=== PATIENT | male | born 1990 | race African-American/Black ===

== ENCOUNTER 2016-06-20 09:37 | Emergency (ER) | payer SELFPAY ==
--- NOTE | 2016-06-20 11:33 | ERRECORD ---
[facility] EMERGENCY RECORD HPI GENERAL (11:18 LLDO) CHIEF COMPLAINT: Patient presents for evaluation of left inguinal hernia. intermittent for months. not tender and does reduce easily. pops out more often these days. no hx trauma. no n/v/d or fever. long talk about etiology and management of hernias. this one gets up to baseball sized at it's largest. HISTORIAN: History provided by patient. MECHANISM OF INJURY: Known mechanism. LOCATION: Symptoms are localized. QUALITY: no pain. TIME COURSE: Patient unable to describe onset of symptoms, There has been no change in the patient's symptoms over time. ASSOCIATED WITH: No associated symptoms. EXACERBATED BY: Patient's condition exacerbated by nothing. RELIEVED BY: Patient's condition relieved by nothing. ROS CONSTITUTIONAL: Negative constitutional review of systems. (11:21 LLDO) EYES: Negative eye review of systems, Historian denies eye pain, denies eye redness, denies eye discharge. (11:22 LLDO) ENT: Negative ears, nose, throat review of systems, Historian denies otalgia, denies rhinorrhea, denies sinus pain, denies sore throat. (11:22 LLDO) GI: IN HPI. (11:21 LLDO) MUSCULOSKELETAL: Negative musculoskeletal review of systems, Historian denies arthralgias, denies fall, denies injury, denies myalgias. (11:22 LLDO) NEUROLOGIC: Negative neurologic review of systems, Historian denies confusion, denies focal weakness, denies mental status changes, denies sensory changes. (11:22 LLDO) ALLERGIC/IMMUNOLOGIC: Normal allergy/immunologic system review, Historian denies eczema, denies environmental allergies, denies food allergies. (11:22 LLDO) PSYCHIATRIC: Negative psychiatric review of systems, Historian denies alcohol abuse, denies anxiety, denies depression, denies drug abuse, denies hallucinations. (11:22 LLDO) NOTES: All systems reviewed, negative except as described above. (11:21 LLDO) PAST MEDICAL HISTORY MEDICAL HISTORY: No past medical history. ([place] Jun 20, 2016 09:59 JPER) MALE SURGICAL HISTORY: Patient has no surgical history. ([place] Jun 20, 2016 09:59 JPER) PSYCHIATRIC HISTORY: Notes: DENIES. ([place] Jun 20, 2016 09:59 JPER) SOCIAL HISTORY: Patient denies alcohol use, Patient denies drug use, Patient has no smoking history. (Leanna Jun 20, 2016 09:59 JPER) &a-1R&a+25V*p+0X*x2858B*c202B*c15G*c2P*p-0X&a-25V&a+1R Name: Raffaele Levin : 1990 M26 MedRec: [id number] AcctNum: [id number] Prepared: Leanna Jun 20, 2016 11:37 by Interface Page 1 of 3 pMD [facility] EMERGENCY RECORD NOTES: Nursing records reviewed, Agree with nursing records, Medication list reviewed. (11:22 LLDO) KNOWN ALLERGIES No Known Drug Allergies CURRENT MEDICATIONS (09:59 JPER) None VITAL SIGNS VITAL SIGNS: BP: 113/83, Pulse: 68, Resp: 18, Temp: 98.6 (Oral), O2 sat: 98 on Room Air, Time: 06/20/2016 09:56. (09:56 JPER) BP: 121/79, Pulse: 75, Resp: 18, Pain: 5, O2 sat: 98 on Room Air, Time: 06/20/2016 11:30. (11:30 AWAT) PHYSICAL EXAM CONSTITUTIONAL: Vital signs reviewed, Patient afebrile, Pulse normal, Blood pressure normal, Respiratory rate normal, Patient appears non toxic, Patient appears pain free, Patient alert and oriented to person, place and time. (11:21 LLDO) HEAD: Head exam normal, Head exam included findings of head atraumatic, normocephalic. (11:22 LLDO) EYES: Eye exam normal, Eye exam included findings of eyelids normal to inspection, Pupils equally round and reactive to light, Extraocular muscles intact. (11:22 LLDO) ENT: ENT exam normal, Ear exam normal, Nose exam normal. (11:22 LLDO) NECK: Neck exam normal, Neck exam included findings of normal range of motion, Trachea midline, no meningeal signs, no tenderness. (11:22 LLDO) ABDOMEN MALE: Abdominal exam included findings of abdomen nontender, Bowel sounds normal, Liver normal, Spleen normal, no distension, no mass, no pulsatile masses, no peritoneal signs, Inguinal hernia present, on the left, reducible, not incarcerated, non tender, not erythematous. (11:21 LLDO) BACK: Back exam normal, Back exam included findings of normal inspection, range of motion normal. (11:22 LLDO) UPPER EXTREMITY: Upper extremity exam normal, Upper extremity exam included findings of inspection normal, Range of motion normal. (11:22 LLDO) LOWER EXTREMITY: Lower extremity exam normal, Lower extremity exam included findings of inspection normal, Range of motion normal. (11:22 LLDO) NEURO: Neuro exam normal, Neuro exam findings include patient oriented to person, place and time, Speech normal, [place] coma scale 15. (11:22 LLDO) SKIN: Skin exam normal, Skin exam included findings of skin warm, dry, and normal in color, no rash. (11:22 LLDO) PSYCHIATRIC: Psychiatric exam normal, Psychiatric exam included findings of patient oriented to person place and time, Normal affect, &a-1R&a+25V*p+0X*g9415P*c202B*c15G*c2P*p-0X&a-25V&a+1R Name: Raffaele Levin : 1990 M26 MedRec: [id number] AcctNum: [id number] Prepared: Leanna Jun 20, 2016 11:37 by Interface Page 2 of 3 pMD [facility] EMERGENCY RECORD Judgment normal. (11:22 LLDO) PROBLEM LIST No recorded problems DIAGNOSIS (11:23 LLDO) FINAL: PRIMARY: inguinal hernia, left. PRESCRIPTION No recorded prescriptions DISPOSITION PATIENT: Disposition Type: Discharge, Disposition: *Discharge Home. (11:23 LLDO) Patient left the department. (11:30 AWAT) [place]: AWAT=JEFFREY Lund, Alon JONES=JEFFREY Archer, Purvi LLDO=MD Katt, Angel &a-1R&a+25V*p+0X*b5502C*c202B*c15G*c2P*p-0X&a-25V&a+1R Name: Raffaele Levin : 1990 M26 MedRec: [id number] AcctNum: [id number] Prepared: Leanna Jun 20, 2016 11:37 by Interface Page 3 of 3 pMD [facility]
--- NOTE | 2016-06-20 11:35 | PICIS ---
[facility] EMERGENCY RECORD TRIAGE ([place] Jun 20, 2016 09:59 JPER) PATIENT: NAME: Raffaele Levin, AGE: 26, GENDER: male, : Sun 1990, TIME OF GREET: TueJun 20, 2016 09:38, PREFERRED LANGUAGE: Citizen Of [place], RACE: Black or , ECODE BILLING MAP: [facility], SSN: [id number], Zip Code: [address], KG WEIGHT: 100.70, PHONE: , , , PERSON ID: [id number], PCP: NO PCP. ([place] Jun 20, 2016 09:59 JPER) COMPLAINT: KNOT ON LT LEG. ([place] Jun 20, 2016 09:59 JPER) ADMISSION: URGENCY: 4 Non Urgent, ADMISSION SOURCE: Home, TRANSPORT: Walk-in, BED: ED -1. ([place] Jun 20, 2016 09:59 JPER) ASSESSMENT: Assessment: PT C/O LEFT INGUINAL HERNIA X 6 MONTHS; REDUCES WHEN FLAT. ([place] Jun 20, 2016 09:59 JPER) PAIN: Location IRRITATING. ([place] Jun 20, 2016 09:59 JPER) IMMUNIZATIONS: Flu vaccine not up to date, Tetanus not up to date, Pneumococcal vaccine not up to date. ([place] Jun 20, 2016 09:59 JPER) SIRS SCORING: Heart Rate 55-109 (0), Temp range 96.8-101.1 (0), respiratory rate 12-24 (0), Mental Status altered: no (0). ([place] Jun 20, 2016 09:59 JPER) TRIAGE SCREENING: Patient denies suicidal ideation, Patient denies presence of domestic violence. ([place] Jun 20, 2016 09:59 JPER) PROVIDERS: TRIAGE NURSE: Purvi Archer RN. ([place] Jun 20, 2016 09:59 JPER) VITAL SIGNS: BP 113/83, Pulse 68, Resp 18, Temp 98.6, (Oral), O2 Sat 98, on Room Air, Time 06/20/2016 09:56. (09:56 JPER) KNOWN ALLERGIES No Known Drug Allergies CURRENT MEDICATIONS (09:59 JPER) None VITAL SIGNS VITAL SIGNS: BP: 113/83, Pulse: 68, Resp: 18, Temp: 98.6 (Oral), O2 sat: 98 on Room Air, Time: 06/20/2016 09:56. (09:56 JPER) BP: 121/79, Pulse: 75, Resp: 18, Pain: 5, O2 sat: 98 on Room Air, Time: 06/20/2016 11:30. (11:30 AWAT) NURSING ASSESSMENT: FOCUSED (10:28 JPER) CONSTITUTIONAL: Patient arrives ambulatory, Gait steady, History obtained from patient, Patient appears comfortable, Patient cooperative, Patient alert, Oriented to person, place and time, Skin warm, Skin dry, Skin normal in color, Mucous membranes pink, Mucous membranes moist, Patient is well-groomed, Patient complains of LEFT INGUINAL HERNIA X 6 MONTHS. PAIN: IRRITATING WITHOUT VERBALIZING ANY PAIN. EYES: Notes: WNL. NEURO: Focused neuro assessment findings include patient alert, &a-1R&a+25V*p+0X*p1883K*c202B*c15G*c2P*p-0X&a-25V&a+1R Name: Raffaele Levin : 1990 M26 MedRec: [id number] AcctNum: [id number] Prepared: Leanna Jun 20, 2016 11:37 by Interface Page 1 of 4 pMD [facility] EMERGENCY RECORD cooperative, No facial droop noted, Speech coherent, No loss of consciousness. GCS: Eye opening: (4) - Spontaneous, Verbal: (5) - Oriented/conversive, Motor: (6) - Obeys commands/Spontaneous, GCS Total: 15. RESPIRATORY: Notes: WNL. ABDOMEN: Notes: WNL. GENITOURINARY: Notes: DEFERRED. MUSCULOSKELETAL: Focused musculoskeletal assessment findings include normal range of motion. LACERATION: Focused laceration assessment not applicable. NURSING PROCEDURE: DISCHARGE NOTE (11:29 AWAT) DISCHARGE: Patient discharged to home, ambulating without assistance, driving self, accompanied by friend, Summary of Care printed/ provided, Patient requested and was provided an electronic copy of Discharge Instructions, Transition record given to patient, Discharge instructions given to patient, Simple or moderate discharge teaching performed, Above person(s) verbalized understanding of discharge instructions and follow-up care, Patient treated and evaluated by physician. BELONGINGS: Belongings remain with patient. NOTES: Patient tolerated procedure well. SAFETY: Side rails up, Cart/Stretcher in lowest position, Family at bedside, Call light within reach, Hospital ID band on. HPI GENERAL (11:18 LLDO) CHIEF COMPLAINT: Patient presents for evaluation of left inguinal hernia. intermittent for months. not tender and does reduce easily. pops out more often these days. no hx trauma. no n/v/d or fever. long talk about etiology and management of hernias. this one gets up to baseball sized at it's largest. HISTORIAN: History provided by patient. MECHANISM OF INJURY: Known mechanism. LOCATION: Symptoms are localized. QUALITY: no pain. TIME COURSE: Patient unable to describe onset of symptoms, There has been no change in the patient's symptoms over time. ASSOCIATED WITH: No associated symptoms. EXACERBATED BY: Patient's condition exacerbated by nothing. RELIEVED BY: Patient's condition relieved by nothing. ROS CONSTITUTIONAL: Negative constitutional review of systems. (11:21 LLDO) EYES: Negative eye review of systems, Historian denies eye pain, denies eye redness, denies eye discharge. (11:22 LLDO) ENT: Negative ears, nose, throat review of systems, Historian denies otalgia, denies rhinorrhea, denies sinus pain, denies sore &a-1R&a+25V*p+0X*w3686K*c202B*c15G*c2P*p-0X&a-25V&a+1R Name: Raffaele Levin : 1990 M26 MedRec: [id number] AcctNum: [id number] Prepared: Leanna Jun 20, 2016 11:37 by Interface Page 2 of 4 pMD [facility] EMERGENCY RECORD throat. (11:22 LLDO) GI: IN HPI. (11:21 LLDO) MUSCULOSKELETAL: Negative musculoskeletal review of systems, Historian denies arthralgias, denies fall, denies injury, denies myalgias. (11:22 LLDO) NEUROLOGIC: Negative neurologic review of systems, Historian denies confusion, denies focal weakness, denies mental status changes, denies sensory changes. (11:22 LLDO) ALLERGIC/IMMUNOLOGIC: Normal allergy/immunologic system review, Historian denies eczema, denies environmental allergies, denies food allergies. (11:22 LLDO) PSYCHIATRIC: Negative psychiatric review of systems, Historian denies alcohol abuse, denies anxiety, denies depression, denies drug abuse, denies hallucinations. (11:22 LLDO) NOTES: All systems reviewed, negative except as described above. (11:21 LLDO) PAST MEDICAL HISTORY MEDICAL HISTORY: No past medical history. ([place] Jun 20, 2016 09:59 JPER) MALE SURGICAL HISTORY: Patient has no surgical history. ([place] Jun 20, 2016 09:59 JPER) PSYCHIATRIC HISTORY: Notes: DENIES. ([place] Jun 20, 2016 09:59 JPER) SOCIAL HISTORY: Patient denies alcohol use, Patient denies drug use, Patient has no smoking history. ([place] Jun 20, 2016 09:59 JPER) NOTES: Nursing records reviewed, Agree with nursing records, Medication list reviewed. (11:22 LLDO) PHYSICAL EXAM CONSTITUTIONAL: Vital signs reviewed, Patient afebrile, Pulse normal, Blood pressure normal, Respiratory rate normal, Patient appears non toxic, Patient appears pain free, Patient alert and oriented to person, place and time. (11:21 LLDO) HEAD: Head exam normal, Head exam included findings of head atraumatic, normocephalic. (11:22 LLDO) EYES: Eye exam normal, Eye exam included findings of eyelids normal to inspection, Pupils equally round and reactive to light, Extraocular muscles intact. (11:22 LLDO) ENT: ENT exam normal, Ear exam normal, Nose exam normal. (11:22 LLDO) NECK: Neck exam normal, Neck exam included findings of normal range of motion, Trachea midline, no meningeal signs, no tenderness. (11:22 LLDO) ABDOMEN MALE: Abdominal exam included findings of abdomen nontender, Bowel sounds normal, Liver normal, Spleen normal, no distension, no mass, no pulsatile masses, no peritoneal signs, Inguinal hernia present, on the left, reducible, not incarcerated, non tender, not erythematous. (11:21 LLDO) BACK: Back exam normal, Back exam included findings of normal &a-1R&a+25V*p+0X*f7983E*c202B*c15G*c2P*p-0X&a-25V&a+1R Name: Raffaele Levin : 1990 M26 MedRec: [id number] AcctNum: [id number] Prepared: Leanna Jun 20, 2016 11:37 by Interface Page 3 of 4 pMD [facility] EMERGENCY RECORD inspection, range of motion normal. (11:22 LLDO) UPPER EXTREMITY: Upper extremity exam normal, Upper extremity exam included findings of inspection normal, Range of motion normal. (11:22 LLDO) LOWER EXTREMITY: Lower extremity exam normal, Lower extremity exam included findings of inspection normal, Range of motion normal. (11:22 LLDO) NEURO: Neuro exam normal, Neuro exam findings include patient oriented to person, place and time, Speech normal, [place] coma scale 15. (11:22 LLDO) SKIN: Skin exam normal, Skin exam included findings of skin warm, dry, and normal in color, no rash. (11:22 LLDO) PSYCHIATRIC: Psychiatric exam normal, Psychiatric exam included findings of patient oriented to person place and time, Normal affect, Judgment normal. (11:22 LLDO) EVENTS TRANSFER: Triage to Emergency Main ED -H01. (09:59 JPER) Emergency Main ED -H01 to -. (10:49 AWAT) Removed from Emergency Main ED -01. (11:30 AWAT) PROBLEM LIST No recorded problems DIAGNOSIS (11:23 LLDO) FINAL: PRIMARY: inguinal hernia, left. DISPOSITION PATIENT: Disposition Type: Discharge, Disposition: *Discharge Home. (11:23 LLDO) Patient left the department. (11:30 AWAT) INSTRUCTION (11:25 LLDO) DISCHARGE: INGUINAL HERNIA. FOLLOWUP: Follow up with Primary Care Physician as needed. SPECIAL: Follow-up with your PCP. PRESCRIPTION No recorded prescriptions IMAGING (11:31 AWAT) *DISCHARGE INSTRUCTIONS RECEIPT: Image captured from scanner. *SUPPLY CHARGE SHEET: Image captured from scanner. ADMIN (11:27 LLDO) DIGITAL SIGNATURE: MD Katt, Angel. [place]: AWAT=JEFFREY Lund, Alon JPER=JEFFREY Archer, Purvi LLDO=MD [place] &a-1R&a+25V*p+0X*l7929F*c202B*c15G*c2P*p-0X&a-25V&a+1R Name: Raffaele Levin : 1990 M26 MedRec: [id number] AcctNum: [id number] Prepared: Leanna Jun 20, 2016 11:37 by Interface Page 4 of 4 pMD [facility] MEDICATION RECONCILIATION You were seen in the Emergency Department on: [place] Jun 20, 2016 KNOWN ALLERGIES No Known Drug Allergies HOME MEDICATIONS None Notes from the emergency department Reviewed with patient &a-1R&a+25V*p+0X*x3224T*c202B*c15G*c2P*p-0X&a-25V&a+1R Name: Raffaele Levin : 1990 M26 MedRec: [id number] AcctNum: [id number] Prepared: Leanna Jun 20, 2016 11:37 by Interface pMD [facility]
== END 2016-06-20 11:30 | disposition home or self-care (01) ==
LOC: MADERS 09:37
DX: K40.90 Unilateral inguinal hernia, without obstruction or gangrene, not specified as recurrent (principal)
CPT/HCPCS: 99283

== ENCOUNTER 2016-11-18 10:23 | Emergency (ER) | payer SELFPAY | END 2016-11-18 10:40 | disposition home or self-care (01) | LOC: MADERS 10:23 | DX: L23.9 Allergic contact dermatitis, unspecified cause (principal) | CPT/HCPCS: 99282 ==

== ENCOUNTER 2017-03-31 20:05 | Emergency (ER) | payer SELFPAY ==
[2017-03-31] MEDS ORDERED: Bacitracin Zinc 1 Packet ONE (20:31)
[2017-03-31] MEDS ORDERED: Cephalexin 500 MG CAP ONE (20:31)
== END 2017-03-31 20:49 | disposition home or self-care (01) ==
LOC: MADERS 20:05
DX: T23.232A Burn of second degree of multiple left fingers (nail), not including thumb, initial encounter (principal); W86.8XXA Exposure to other electric current, initial encounter; Y93.G9 Activity, other involving cooking and grilling; Y92.69 Other specified industrial and construction area as the place of occurrence of the external cause; Y99.0 Civilian activity done for income or pay
CPT/HCPCS: 99283

== ENCOUNTER 2017-10-06 21:44 | Emergency (ER) | payer SELFPAY ==
[2017-10-06] MEDS ORDERED: Amoxicillin/Potassium Clav 875 MG TAB ONE (22:29)
[2017-10-06] MEDS ORDERED: Sterile Water 0 ML ONE (22:29)
[2017-10-06] MEDS ORDERED: Ibuprofen 800 MG TAB ONE (22:29)
[2017-10-06] MEDS ORDERED: methylPREDNISolone Sod Succ/PF 125 MG/2 ML VIAL ONE (22:29)
== END 2017-10-06 23:01 | disposition home or self-care (01) ==
LOC: MADERS 21:44
DX: J02.9 Acute pharyngitis, unspecified (principal)
CPT/HCPCS: 96372; A4216; J2930

== ENCOUNTER 2017-10-10 12:16 | Emergency (ER) | payer SELFPAY ==
[2017-10-10] MEDS ORDERED: Azithromycin 250 MG TAB ONE (13:42)
[2017-10-10] MEDS ORDERED: cefTRIAXone\\ROCEPHIN 250 MG VIAL ONE (13:42)
[2017-10-10] MEDS ORDERED: Sodium Chloride 0.9% 1,000 ML BAG ONE (13:49)
[2017-10-10] MEDS ORDERED: Lactated Ringer's 1,000 ML BAG ONE (13:49)
[2017-10-10 14:08] LABS: Bilirubin Negative (Negative); Blood, Urine Negative (Negative); Clarity Clear (Clear); Glucose, Urine (Dipstick) >=1000 mg/dL (Negative); Leukocyte Negative (Negative); Nitrite Negative (Negative); Protein, Urine (Dipstick) Negative (Neg-Trace); Specific Gravity, Urine 1.025 (1.002-1.036); Urobilinogen 0.2 mg/dL (0.2-1.0)
[2017-10-10 14:16] LABS: Hemoglobin 15.6 g/dL (14.0-18.0); Lymphocytes 18 % (21-51); MDiff Complete? YES; Mean Corpuscular Hemoglobin 25.7 pg (27.0-31.0); Mean Corpuscular Volume 88.6 fl (80.0-94.0); Mean Platelet Volume 8.6 fL (7.4-10.4); Monocytes 8 % (0-10); Neutrophil 74 % (42-75); Platelet Count 195 thou/uL (130-400); RBC Distribution Width 13.4 % (11.5-14.5); Red Blood Cell (RBC) Count 6.05 mill/uL (4.70-6.10); White Blood Cell (WBC) Count 10.5 thou/uL (4.8-10.8)
[2017-10-10 14:24] LABS: ALT (SGPT) 31 U/L (8-55); AST (SGOT) 15 U/L (5-34); Albumin 4.8 g/dL (3.5-5.0); Alkaline Phosphatase 89 U/L (40-150); Anion Gap 26 mmol/L (10-20); BUN (Urea Nitrogen) 27 mg/dL (8.9-20.6); Bilirubin, Total 1.2 mg/dL (0.2-1.2); Calc. Creatinine Clearance 0 mL/min (70-130); Calcium 10.8 mg/dL (7.8-10.44); Carbon Dioxide 19 mmol/L (22-29); Chloride 82 mmol/L (98-107); Estimated GFR-MDRD 42; Potassium 5.8 mmol/L (3.5-5.1); Protein, Total 8.8 g/dL (6.0-8.3); Sodium 121 mmol/L (136-145)
[2017-10-10 14:32] LABS: Glucose 1126 mg/dL (70-105)
[2017-10-10] MEDS ORDERED: Insulin Regular 300 UNITS/3 ML VIAL ONE (15:06)
== END 2017-10-10 16:25 | disposition short-term general hospital (02) ==
LOC: MADERS 12:16
DX: E11.10 Type 2 diabetes mellitus with ketoacidosis without coma (principal); N17.9 Acute kidney failure, unspecified; N48.1 Balanitis; S30.812A Abrasion of penis, initial encounter; I10 Essential (primary) hypertension; X58.XXXA Exposure to other specified factors, initial encounter
CPT/HCPCS: 36415; 36416; 80053; 81003; 85025; 96361; 96372; 96374; J0696; J1815; J7050; J7120

== ENCOUNTER 2018-08-30 12:50 | Emergency (ER) | payer BC ==
[~2018-08-30 12:50] MED LIST: Lidocaine 1% 20 ML MDV ONE
[2018-08-30 13:54] LABS: Bilirubin Negative (Negative); Blood, Urine Trace (Negative); Clarity Clear (Clear); Glucose, Urine (Dipstick) Negative (Negative); Leukocyte Negative (Negative); Nitrite Negative (Negative); Protein, Urine (Dipstick) Trace mg/dL (Neg-Trace); Specific Gravity, Urine 1.025 (1.005-1.030); Urobilinogen 0.2 mg/dL (0.2-1.0); pH, Urine 5.5 (5.0-9.0)
[2018-08-30 13:59] LABS: Bacteria/HPF Rare-Few HPF (None Seen); RBC/HPF 0-3 HPF (0-3); Squamous Epithelial 0-3 HPF (0-3); WBC/HPF 0-3 HPF (0-3)
[2018-08-30] MEDS ORDERED: cefTRIAXone\\ROCEPHIN 1 GM VIAL ONE (14:25)
[2018-08-30] MEDS ORDERED: Azithromycin 250 MG TAB ONE (14:25)
[2018-09-01 17:06] LABS: Chlam.trachomatis by PCR,Urine Not Detected (NotDetected)
== END 2018-08-30 14:50 | disposition home or self-care (01) ==
LOC: MADERS 12:50
DX: R30.0 Dysuria (principal)
CPT/HCPCS: 36416; 81003; 81015; 87491; 87591; 96372; J0696; J2001

== ENCOUNTER 2018-12-02 15:29 | Emergency (ER) | payer BC, SELFPAY ==
[2018-12-02 16:28] LABS: #Basophils 0.1 thou/uL (0.0-0.2); #Lymphocytes 1.9 thou/uL (1.20-3.40); #Monocytes 0.5 thou/uL (0.11-0.59); #Neutrophils 4.6 thou/uL (1.40-6.50); %Basophils 1.8 % (0.0-1.0); %Eosinophils 0.4 % (0.0-10.0); %Lymphocytes 26.7 % (21.0-51.0); %Monocytes 6.6 % (0.0-10.0); %Neutrophils 64.5 % (42.0-75.0); Hemoglobin 15.2 g/dL (14.0-18.0); Mean Corpuscular HGB CONC 30.6 g/dL (32.0-36.0); Mean Corpuscular Hemoglobin 25.5 pg (27.0-31.0); Mean Corpuscular Volume 83.3 fL (78.0-98.0); Mean Platelet Volume 8.2 fL (7.4-10.4); Platelet Count 175 thou/uL (130-400); RBC Distribution Width 12.6 % (11.5-14.5); Red Blood Cell (RBC) Count 5.97 mill/uL (4.70-6.10); White Blood Cell (WBC) Count 7.2 thou/uL (4.8-10.8)
--- NOTE | 2018-12-02 16:28 | RAD ---
RADIOGRAPH CHEST 1 VIEW: DATE: 12/02/2018 HISTORY: 28-year-old male with diabetic ketoacidosis. FINDINGS: The visualized lung dena are clear. The cardiomediastinal silhouette and hilar shadows are normal. The lateral costophrenic angles are sharp. The osseous structures appear normal. There is no pneumothorax. IMPRESSION: Negative.
[2018-12-02 16:31] LABS: Bilirubin Negative (Negative); Blood, Urine Trace (Negative); Clarity Hazy (Clear); Glucose, Urine (Dipstick) 500 mg/dL (Negative); Leukocyte Trace (Negative); Nitrite Negative (Negative); Protein, Urine (Dipstick) Negative (Neg-Trace); Urobilinogen 0.2 mg/dL (Less than 2)
[2018-12-02 16:32] LABS: ALT (SGPT) 30 U/L (8-55); AST (SGOT) 18 U/L (5-34); Albumin 4.8 g/dL (3.5-5.0); Alkaline Phosphatase 96 U/L (40-150); Anion Gap 19 mmol/L (10-20); BUN (Urea Nitrogen) 22 mg/dL (8.9-20.6); Bilirubin, Total 0.7 mg/dL (0.2-1.2); Calc. Creatinine Clearance 0 mL/min (70-130); Calcium 9.6 mg/dL (7.8-10.44); Carbon Dioxide 22 mmol/L (22-29); Chloride 93 mmol/L (98-107); Estimated GFR-MDRD 49; Globulin 3.5 g/dL (2.4-3.5); Lipase 45 U/L (8-78); Protein, Total 8.3 g/dL (6.0-8.3); Sodium 129 mmol/L (136-145)
[2018-12-02 16:33] LABS: Bacteria/HPF Rare-Few HPF (None Seen); RBC/HPF 0-3 HPF (0-3); Squamous Epithelial 0-3 HPF (0-3); Yeast-Budding 1+ HPF (None Seen)
[2018-12-02 16:37] LABS: Base Excess-Venous -0.9 mmol/L (-2.0 to 3.0); Bicarbonate (HCO3v) 25.3 mmol/L (22.0-28.0); CO2 Tension (PvCO2) 45.7 mmHg (40.0-50.0); Calcium, Ionized 1.11 mmol/L (See Comments:); Chloride 97 mmol/L (98-107); Hemoglobin - Calc 19.3 g/dL (14.0-18.0); Potassium 6.7 mmol/L (3.5-5.1); Sodium 128 mmol/L (138-145); T. Carbon Dioxide 26.7 mmol/L (22.0-28.0); vO2 Saturation-calc 99.2 % (60.0-85.0)
[2018-12-02 16:43] LABS: Glucose 795 mg/dL (70-105)
[2018-12-02] MEDS ORDERED: Insulin Regular 300 UNITS/3 ML VIAL ONE (16:53)
[2018-12-02 17:00] LABS: Acetaminophen Less than 6.0 mcg/mL (10.0-30.0); Alcohol Less than 10 mg/dL (Less than 10); Salicylate Less than 8.0 mg/dL (15.0-30.0)
[2018-12-02] MEDS ORDERED: Sodium Chloride 0.9% 2,000 ML ONE (17:32)
[2018-12-02] MEDS ORDERED: Sodium Chloride 0.9% 100 ML ONE (17:32)
== END 2018-12-02 17:13 | disposition short-term general hospital (02) ==
LOC: MADERS 15:29
DX: E11.65 Type 2 diabetes mellitus with hyperglycemia (principal); E86.0 Dehydration; E87.0 Hyperosmolality and hypernatremia; Z79.4 Long term (current) use of insulin
CPT/HCPCS: 71045; 80053; 80307; 81003; 81015; 82010; 82330; 82803; 83605; 83690; 83930; 85025; 93005; 96361; 96365; J1815; J3490; J7050

== ENCOUNTER 2019-01-27 20:43 | Emergency (ER) | payer SELFPAY | END 2019-01-27 21:07 | disposition home or self-care (01) | LOC: MADERS 20:43 | DX: N50.9 Disorder of male genital organs, unspecified (principal); I10 Essential (primary) hypertension | CPT/HCPCS: 99281 ==

== ENCOUNTER 2019-02-16 19:12 | Emergency (ER) | payer SELFPAY ==
[~2019-02-16 19:12] MED LIST changes: +Iopamidol 370 76% 125 ML VIAL FS ONE; -Lidocaine 1% 20 ML MDV ONE
--- NOTE | 2019-02-16 20:12 | CT ---
CT BRAIN 02/16/19 PROVIDED CLINICAL HISTORY: Trauma. FINDINGS: No comparisons. The ventricular system appears normal in size and morphology. There is no evidence fo r intracranial hemorrhage or mass effect. The extracranial soft tissues and osseous structures demons trate no acute findings. IMPRESSION: No evidence for intracranial hemorrhage or mass effect. POS: [facility]
--- NOTE | 2019-02-16 20:28 | CT ---
CT ANGIOGRAM GREAT VESSELS 02/16/19 PROVIDED CLINICAL HISTORY: Trauma. FINDINGS: The great vessel origins at the arch are not included on this imaging volume. Given this limitation, there is a normal appearance to the great vessels of the neck. There is no evidence for fracture or t raumatic subluxation. There is no prevertebral soft tissue swelling apparent. The visualized lung api ronnie appear clear. IMPRESSION: No evidence for an acute process with limitations as above. POS: [facility]A
== END 2019-02-16 20:46 | disposition home or self-care (01) ==
LOC: MADERS 19:12
DX: S13.4XXA Sprain of ligaments of cervical spine, initial encounter (principal); E11.9 Type 2 diabetes mellitus without complications; I10 Essential (primary) hypertension; Z79.4 Long term (current) use of insulin; V89.2XXA Person injured in unspecified motor-vehicle accident, traffic, initial encounter
CPT/HCPCS: 70450; 70498; Q9967

== ENCOUNTER 2019-08-30 21:38 | Emergency (ER) | payer SELFPAY ==
[2019-08-30] MEDS ORDERED: Sodium Chloride 0.9% 1,000 ML ONE (22:14)
[2019-08-30] MEDS ORDERED: Acetaminophen 500 MG TAB ONE (22:14)
--- NOTE | 2019-08-30 22:19 | RAD ---
RADIOGRAPH CHEST 1 VIEW: DATE: 08/30/2019 HISTORY: 29-year-old male with fever FINDINGS: There are no airspace densities, pulmonary edema, pneumothorax, or cardiomegaly. The lateral costophr enic angles are sharp. IMPRESSION: No acute cardiopulmonary findings.
[2019-08-30 22:23] LABS: Mean Corpuscular HGB CONC 30.3 g/dL (32.0-36.0); Mean Corpuscular Hemoglobin 26.2 pg (27.0-31.0); Mean Corpuscular Volume 86.3 fL (78.0-98.0); Mean Platelet Volume 8.6 fL (7.4-10.4); Platelet Count 174 thou/uL (130-400); RBC Distribution Width 12.7 % (11.5-14.5); Red Blood Cell (RBC) Count 6.13 mill/uL (4.70-6.10); White Blood Cell (WBC) Count 9.4 thou/uL (4.8-10.8)
[2019-08-30 22:32] LABS: ALT (SGPT) 34 U/L (8-55); AST (SGOT) 22 U/L (5-34); Albumin 4.7 g/dL (3.5-5.0); Alkaline Phosphatase 51 U/L (40-110); Anion Gap 16 mmol/L (10-20); BUN (Urea Nitrogen) 16 mg/dL (8.9-20.6); Bilirubin, Total 0.8 mg/dL (0.2-1.2); Calc. Creatinine Clearance 0 mL/min (70-130); Calcium 9.8 mg/dL (7.8-10.44); Carbon Dioxide 27 mmol/L (22-29); Chloride 103 mmol/L (98-107); Estimated GFR-MDRD 81; Globulin 3.5 g/dL (2.4-3.5); Glucose 179 mg/dL (70-105); Protein, Total 8.2 g/dL (6.0-8.3); Sodium 142 mmol/L (136-145)
[2019-08-30 22:38] LABS: Band 3 % (5-11); Eosinophils 1 % (0-10); Lymphocytes 4 % (21-51); MDiff Complete? YES; Monocytes 3 % (0-10); Neutrophil 89 % (42-75); Platelet Morphology Comment Appears Adequate; RBC Morphology Normal
[2019-08-30 23:04] LABS: Bilirubin Negative (Negative); Blood, Urine Trace (Negative); Clarity Clear (Clear); Glucose, Urine (Dipstick) >=1000 mg/dL (Negative); Leukocyte Negative (Negative); Nitrite Negative (Negative); Protein, Urine (Dipstick) Trace mg/dL (Neg-Trace); Urobilinogen 0.2 mg/dL (Less than 2)
[2019-08-30 23:12] LABS: Bacteria/HPF None Seen HPF (None Seen); RBC/HPF 0-3 HPF (0-3); WBC/HPF 0-3 HPF (0-3)
[2019-08-30 23:13] LABS: Mucous/LPF Rare LPF (<2+)
== END 2019-08-30 23:40 | disposition home or self-care (01) ==
LOC: MADERS 21:38
DX: A08.4 Viral intestinal infection, unspecified (principal); E11.65 Type 2 diabetes mellitus with hyperglycemia; E11.9 Type 2 diabetes mellitus without complications; I10 Essential (primary) hypertension; Z79.4 Long term (current) use of insulin
CPT/HCPCS: 36416; 71045; 80053; 81003; 81015; 85025; 94760; 96360; J7050

== ENCOUNTER 2019-10-30 23:11 | Emergency (ER) | payer SELFPAY ==
[~2019-10-30 23:11] MED LIST changes: -Iopamidol 370 76% 125 ML VIAL FS ONE; +Sodium Chloride 0.9% 1,000 ML BAG ONE
[2019-10-30] MEDS ORDERED: Insulin Regular 300 UNITS/3 ML VIAL ONE (23:47)
[2019-10-30 23:55] LABS: #Basophils 0.1 thou/uL (0.0-0.2); #Eosinphils 0.1 thou/uL (0.0-0.7); #Lymphocytes 2.5 thou/uL (1.20-3.40); #Monocytes 0.5 thou/uL (0.11-0.59); #Neutrophils 3.8 thou/uL (1.40-6.50); %Basophils 2.1 % (0.0-1.0); %Eosinophils 0.8 % (0.0-10.0); %Lymphocytes 35.5 % (21.0-51.0); %Monocytes 7.5 % (0.0-10.0); %Neutrophils 54.2 % (42.0-75.0); Mean Corpuscular HGB CONC 31.8 g/dL (32.0-36.0); Mean Corpuscular Volume 84.7 fL (78.0-98.0); Mean Platelet Volume 9.8 fL (7.4-10.4); Platelet Count 190 thou/uL (130-400); RBC Distribution Width 12.7 % (11.5-14.5); Red Blood Cell (RBC) Count 5.56 mill/uL (4.70-6.10); White Blood Cell (WBC) Count 7.1 thou/uL (4.8-10.8)
[2019-10-31 00:09] LABS: ALT (SGPT) 33 U/L (8-55); AST (SGOT) 19 U/L (5-34); Albumin 4.5 g/dL (3.5-5.0); Alkaline Phosphatase 74 U/L (40-110); Anion Gap 19 mmol/L (10-20); BUN (Urea Nitrogen) 17 mg/dL (8.9-20.6); Bilirubin, Total 0.5 mg/dL (0.2-1.2); Calc. Creatinine Clearance 0 mL/min (70-130); Calcium 9.8 mg/dL (7.8-10.44); Carbon Dioxide 21 mmol/L (22-29); Chloride 96 mmol/L (98-107); Estimated GFR-MDRD 59; Globulin 3.8 g/dL (2.4-3.5); Potassium 4.6 mmol/L (3.5-5.1); Protein, Total 8.3 g/dL (6.0-8.3); Sodium 131 mmol/L (136-145)
[2019-10-31 00:14] LABS: Bilirubin Negative (Negative); Blood, Urine Negative (Negative); Clarity Clear (Clear); Glucose, Urine (Dipstick) >=1000 mg/dL (Negative); Leukocyte Negative (Negative); Nitrite Negative (Negative); Protein, Urine (Dipstick) Negative (Neg-Trace); Urobilinogen 0.2 mg/dL (Less than 2)
[2019-10-31 00:15] LABS: Glucose 705 mg/dL (70-105)
== END 2019-10-31 01:32 | disposition home or self-care (01) ==
LOC: MADERS 23:11
DX: E11.65 Type 2 diabetes mellitus with hyperglycemia (principal); I10 Essential (primary) hypertension; Z79.4 Long term (current) use of insulin
CPT/HCPCS: 36416; 80053; 81003; 85025; 96361; 96374; 96376; J1815; J7050

== ENCOUNTER 2019-12-07 08:51 | Emergency (ER) | payer OTHER, SELFPAY ==
--- NOTE | 2019-12-07 10:18 | RAD ---
Chest one view HISTORY: Cough. COMPARISON: 08/30/2019. FINDINGS: Cardiac silhouette is magnified by projection. Pulmonary vasculature is unremarkable. Mediastinum is midline. Right hemidiaphragm remains slightly elevated. No lobar consolidation or evid ence of pneumothorax. IMPRESSION : No active cardiopulmonary abnormalities are demonstrated.
[2019-12-07 10:28] LABS: #Lymphocytes 1.1 thou/uL (1.20-3.40); #Monocytes 0.3 thou/uL (0.11-0.59); #Neutrophils 5.2 thou/uL (1.40-6.50); %Basophils 0.6 % (0.0-1.0); %Lymphocytes 16.9 % (21.0-51.0); %Monocytes 4.3 % (0.0-10.0); %Neutrophils 78.2 % (42.0-75.0); Hemoglobin 14.2 g/dL (14.0-18.0); Mean Corpuscular HGB CONC 30.9 g/dL (32.0-36.0); Mean Corpuscular Hemoglobin 25.7 pg (27.0-31.0); Mean Corpuscular Volume 83.1 fL (78.0-98.0); Mean Platelet Volume 7.8 fL (7.4-10.4); Platelet Count 174 thou/uL (130-400); RBC Distribution Width 12.4 % (11.5-14.5); Red Blood Cell (RBC) Count 5.54 mill/uL (4.70-6.10); White Blood Cell (WBC) Count 6.7 thou/uL (4.8-10.8)
[2019-12-07 10:42] LABS: ALT (SGPT) 30 U/L (8-55); AST (SGOT) 27 U/L (5-34); Albumin 4.2 g/dL (3.5-5.0); Alkaline Phosphatase 51 U/L (40-110); Anion Gap 18 mmol/L (10-20); BUN (Urea Nitrogen) 12 mg/dL (8.9-20.6); Bilirubin, Total 0.9 mg/dL (0.2-1.2); Calc. Creatinine Clearance 0 mL/min (70-130); Calcium 8.5 mg/dL (7.8-10.44); Carbon Dioxide 21 mmol/L (22-29); Chloride 100 mmol/L (98-107); Estimated GFR-MDRD Greater than 90; Globulin 3.4 g/dL (2.4-3.5); Glucose 172 mg/dL (70-105); Potassium 3.9 mmol/L (3.5-5.1); Protein, Total 7.6 g/dL (6.0-8.3); Sodium 135 mmol/L (136-145)
[2019-12-07] MEDS ORDERED: Sodium Chloride 0.9% 2,000 ML ONE (11:22)
[2019-12-07 11:42] LABS: Bilirubin Small (Negative); Blood, Urine Large (Negative); Clarity Clear (Clear); Glucose, Urine (Dipstick) 500 mg/dL (Negative); Ketone, Urine > or equal to 80 mg/dL (Negative); Leukocyte Negative (Negative); Nitrite Negative (Negative); Protein, Urine (Dipstick) > or equal to 300 mg/dL (Neg-Trace)
[2019-12-07 11:56] LABS: Amphetamine Not Detected (NotDetected); Barbiturates Screen Not Detected (NotDetected); Benzodiazepine Screen Not Detected (NotDetected); Cocaine Metabolite Screen Not Detected (NotDetected); Medtox Control Line Valid? VALID (VALID); Methadone Not Detected (NotDetected); Methamphetamine Not Detected (NotDetected); Opiate Screen Not Detected (NotDetected); Oxycodone Screen Not Detected (NotDetected); Phencyclidine (PCP) Not Detected (NotDetected); THC/Cannabinoid Screen Detected (NotDetected); Tricyclic Screen Not Detected (NotDetected)
[2019-12-07 12:03] LABS: Specific Gravity, Urine 1.047 (1.002-1.036)
[2019-12-07 12:04] LABS: Bacteria/HPF 1+ HPF (None Seen); RBC/HPF 21-50 HPF (0-3); WBC/HPF 0-3 HPF (0-3)
== END 2019-12-07 13:02 | disposition home or self-care (01) ==
LOC: MADERS 08:51
DX: U07.1 COVID-19 (principal); J20.8 Acute bronchitis due to other specified organisms; E86.0 Dehydration; F12.10 Cannabis abuse, uncomplicated; E11.9 Type 2 diabetes mellitus without complications; I10 Essential (primary) hypertension; Z79.4 Long term (current) use of insulin
CPT/HCPCS: 71045; 80053; 80306; 81003; 81015; 83605; 84484; 85025; 85379; 86140; 87040; 87635; 96360; 96361; J7050; U0003

== ENCOUNTER 2020-05-07 12:05 | Emergency (ER) | payer SELFPAY ==
[2020-05-07] MEDS ORDERED: Lidocaine 1% 20 ML MDV ONE (12:37)
[2020-05-07] MEDS ORDERED: Boostrix 0.5 ML (Tdap) VIAL ONE (12:37)
[2020-05-07] MEDS ORDERED: Bacitracin 1 PK ONE (12:56)
== END 2020-05-07 13:00 | disposition home or self-care (01) ==
LOC: MADERS 12:05
DX: S61.412A Laceration without foreign body of left hand, initial encounter (principal); I10 Essential (primary) hypertension; E11.9 Type 2 diabetes mellitus without complications; Z79.899 Other long term (current) drug therapy; Z79.4 Long term (current) use of insulin; W26.8XXA Contact with other sharp object(s), not elsewhere classified, initial encounter
CPT/HCPCS: 12001; 90471; 90715

== ENCOUNTER 2020-05-19 16:19 | Emergency (ER) | payer SELFPAY | END 2020-05-19 16:48 | disposition home or self-care (01) | LOC: MADERS 16:19 | DX: S61.412D Laceration without foreign body of left hand, subsequent encounter (principal); I10 Essential (primary) hypertension; E11.9 Type 2 diabetes mellitus without complications; Z79.4 Long term (current) use of insulin; X58.XXXD Exposure to other specified factors, subsequent encounter ==

== ENCOUNTER 2020-11-17 15:19 | Emergency (ER) | payer SELFPAY ==
[2020-11-17] MEDS ORDERED: Sodium Chloride 0.9% 1,000 ML ONE ×2 (15:50→16:41)
[2020-11-17 16:18] LABS: ALT (SGPT) 33 U/L (8-55); AST (SGOT) 19 U/L (5-34); Albumin 4.5 g/dL (3.5-5.0); Alkaline Phosphatase 65 U/L (40-110); Anion Gap 19 mmol/L (10-20); BUN (Urea Nitrogen) 15 mg/dL (8.9-20.6); Bilirubin, Total 0.8 mg/dL (0.2-1.2); Calc. Creatinine Clearance 0 mL/min (70-130); Calcium 9.3 mg/dL (7.8-10.44); Carbon Dioxide 21 mmol/L (22-29); Chloride 99 mmol/L (98-107); Globulin 3.3 g/dL (2.4-3.5); Glucose 474 mg/dL (70-105); Magnesium 1.8 mg/dL (1.6-2.6); Potassium 3.9 mmol/L (3.5-5.1); Protein, Total 7.8 g/dL (6.0-8.3); Sodium 135 mmol/L (136-145)
[2020-11-17 16:26] LABS: Band 1 % (5-11); Base Excess-Venous 1.1 mmol/L (-2.0 to 3.0); Bicarbonate (HCO3v) 26.4 mmol/L (22.0-28.0); CO2 Tension (PvCO2) 43.1 mmHg (42.0-51.0); Calcium, Ionized 1.06 mmol/L (1.15-1.33); Chloride 102 mmol/L (98-107); Eosinophils 3 % (0-10); Hemoglobin 15.8 g/dL (14.0-18.0); Hemoglobin - Calc 18.1 g/dL (14.0-18.0); Lymphocytes 16 % (21-51); MDiff Complete? YES; Mean Corpuscular HGB CONC 30.4 g/dL (32.0-36.0); Mean Corpuscular Hemoglobin 26.4 pg (27.0-31.0); Mean Platelet Volume 9.2 fL (7.4-10.4); Monocytes 4 % (0-10); Neutrophil 66 % (42-75); Platelet Count 214 thou/uL (130-400); Platelet Morphology Comment Appears Adequate; Potassium 4.8 mmol/L (3.5-5.1); RBC Distribution Width 12.7 % (11.5-14.5); RBC Morphology Normal; Reactive Lymphocytes 9 % (0-10); Sodium 135 mmol/L (138-145); T. Carbon Dioxide 27.7 mmol/L (22.0-28.0); White Blood Cell (WBC) Count 8.1 thou/uL (4.8-10.8); vO2 Saturation-calc 99.5 % (60.0-85.0)
[2020-11-17] MEDS ORDERED: Insulin Regular 300 UNITS/3 ML VIAL ONE (17:21)
== END 2020-11-17 18:00 | disposition home or self-care (01) ==
LOC: MADERS 15:19
DX: E11.65 Type 2 diabetes mellitus with hyperglycemia (principal); I10 Essential (primary) hypertension; Z79.4 Long term (current) use of insulin
CPT/HCPCS: 36416; 80053; 82330; 82803; 83735; 83880; 84484; 85025; 93005; 96374; J1815; J7050

== ENCOUNTER 2022-08-11 22:29 | Emergency (ER) | payer OTHER, SELFPAY ==
[2022-08-11 23:12] LABS: #Basophils 0.1 thou/uL (0.0-0.2); #Lymphocytes 2.6 thou/uL (1.20-3.40); #Monocytes 0.5 thou/uL (0.11-0.59); #Neutrophils 3.1 thou/uL (1.40-6.50); %Basophils 1.5 % (0.0-1.0); %Eosinophils 0.8 % (0.0-10.0); %Lymphocytes 41.4 % (21.0-51.0); %Monocytes 7.8 % (0.0-10.0); %Neutrophils 48.5 % (42.0-75.0); Hemoglobin 15.9 g/dL (14.0-18.0); Mean Corpuscular HGB CONC 32.2 g/dL (32.0-36.0); Mean Corpuscular Hemoglobin 26.8 pg (27.0-31.0); Mean Corpuscular Volume 83.3 fl (78.0-98.0); Mean Platelet Volume 7.7 fL (7.4-10.4); Platelet Count 233 10x3/uL (130-400); RBC Distribution Width 11.8 % (11.5-14.5); Red Blood Cell (RBC) Count 5.92 mill/uL (4.70-6.10); White Blood Cell (WBC) Count 6.3 10x3/uL (4.8-10.8)
[2022-08-11 23:27] LABS: Base Excess-Venous 3.8 mmol/L (-2.0 to 3.0); Bicarbonate (HCO3v) 30.1 mmol/L (22.0-28.0); CO2 Tension (PvCO2) 49.2 mmHg (42.0-51.0); Calcium, Ionized 1.18 mmol/L (1.15-1.33); Chloride 96 mmol/L (98-107); Hemoglobin - Calc 18.9 g/dL (14.0-18.0); Potassium 4.6 mmol/L (3.5-5.1); Sodium 134 mmol/L (138-145); T. Carbon Dioxide 31.7 mmol/L (22.0-28.0); vO2 Saturation-calc 87.7 % (60.0-85.0)
[2022-08-11 23:33] LABS: ALT (SGPT) 30 U/L (8-55); AST (SGOT) 13 U/L (5-34); Albumin 4.7 g/dL (3.5-5.0); Alkaline Phosphatase 71 U/L (40-110); Anion Gap 16 mmol/L (10-20); BUN (Urea Nitrogen) 16 mg/dL (8.9-20.6); Bilirubin, Total 0.5 mg/dL (0.2-1.2); Calc. Creatinine Clearance 0 mL/min (70-130); Calcium 10.3 mg/dL (7.8-10.44); Carbon Dioxide 27 mmol/L (22-29); Chloride 94 mmol/L (98-107); Estimated GFR 55; Globulin 3.7 g/dL (2.4-3.5); Lipase 55 U/L (8-78); Magnesium 2.1 mg/dL (1.6-2.6); Potassium 4.6 mmol/L (3.5-5.1); Protein, Total 8.4 g/dL (6.0-8.3); Sodium 132 mmol/L (136-145)
[2022-08-11 23:44] LABS: Glucose 653 mg/dL (70-105)
[2022-08-12 00:10] LABS: Bilirubin Negative (Negative); Blood, Urine Negative (Negative); Clarity Clear (Clear); Glucose, Urine (Dipstick) 500 mg/dL (Negative); Ketone, Urine Negative (Negative); Leukocyte Negative (Negative); Nitrite Negative (Negative); Protein, Urine (Dipstick) Negative (Neg-Trace); Specific Gravity, Urine 1.015 (1.005-1.030); Urobilinogen 0.2 mg/dL (Less than 2)
== END 2022-08-12 00:55 | disposition home or self-care (01) ==
LOC: MADERS 22:29
DX: E11.65 Type 2 diabetes mellitus with hyperglycemia (principal); I10 Essential (primary) hypertension; F17.210 Nicotine dependence, cigarettes, uncomplicated; Z79.4 Long term (current) use of insulin
CPT/HCPCS: 36416; 71045; 80053; 81003; 82010; 82330; 82803; 83690; 83735; 85014; 85025; 87077; 87086; J7050